=== PATIENT | female | born 1955 | race Caucasian/White ===

== ENCOUNTER → 2020-12-22 11:03 | Outpatient (CLI) | payer MEDICARE, SELFPAY | PROVIDERS: Visit Provider Ophthalmology | DX: Z01.812 Encounter for preprocedural laboratory examination (principal); Z20.822 Contact with and (suspected) exposure to COVID-19 | CPT/HCPCS: U0003 ==

== ENCOUNTER 2020-12-25 11:42 | Day surgery (SDC) | payer MEDICARE, SELFPAY ==
[2020-12-20 14:19] VITALS: BMI 29.2
[2020-12-25] VITALS (7 sets, daily range): BP systolic 124–189; BP diastolic 60–104; PULSE 59–97; RESP 16–18; TEMP 36.5; O2SAT 95–100
[2020-12-25 12:07] LABS: POC Glucose,Bedside 91 (70-110)
== END 2020-12-25 12:58 ==
PROVIDERS: PCP Nurse Practitioner; Visit Provider Ophthalmology
DX: H25.813 Combined forms of age-related cataract, bilateral (principal); H53.143 Visual discomfort, bilateral; H52.00 Hypermetropia, unspecified eye; E03.9 Hypothyroidism, unspecified; K21.9 Gastro-esophageal reflux disease without esophagitis; F41.9 Anxiety disorder, unspecified; F32.9 Major depressive disorder, single episode, unspecified; I10 Essential (primary) hypertension; Z88.1 Allergy status to other antibiotic agents; Z88.0 Allergy status to penicillin; Z88.8 Allergy status to other drugs, medicaments and biological substances; Z79.899 Other long term (current) drug therapy
CPT/HCPCS: 66984; 82962; V2632

== ENCOUNTER → 2021-01-12 11:54 | Outpatient (CLI) | payer MEDICARE, SELFPAY | PROVIDERS: Visit Provider Ophthalmology | DX: Z01.812 Encounter for preprocedural laboratory examination (principal); Z20.822 Contact with and (suspected) exposure to COVID-19 | CPT/HCPCS: U0003 ==

== ENCOUNTER 2021-01-15 10:04 | Day surgery (SDC) | payer MEDICARE, SELFPAY ==
[2021-01-08 17:02] VITALS: BMI 31.2
[2021-01-15] VITALS (7 sets, daily range): BP systolic 129–160; BP diastolic 64–86; PULSE 64–90; RESP 16–20; TEMP 36.1–36.5; O2SAT 93–100
== END 2021-01-15 12:18 | disposition home or self-care (01) ==
LOC: OR 10:05
PROVIDERS: PCP Nurse Practitioner; Visit Provider Ophthalmology
DX: H25.812 Combined forms of age-related cataract, left eye (principal)
CPT/HCPCS: 66984; V2632

== ENCOUNTER 2021-12-04 09:15 | Emergency (ER) | payer BC, SELFPAY ==
[2021-12-04] VITALS (7 sets, daily range): BP systolic 126–164; BP diastolic 72–90; PULSE 53–85; RESP 18; TEMP 36.9; O2SAT 99–100; BMI 26.4
--- NOTE | 2021-12-04 09:24 | PC.NURSE ---
ED MD at BS; family at BS
--- NOTE | 2021-12-04 09:27 | CT_ITS ---
FINAL REPORT CLINICAL HISTORY: fall, LOC, neck pain FINDINGS: Axial CT images of the cervical spine were obtained without contrast. Sagittal and coronal reformatted images were also obtained. This study was performed with techniques to keep radiation doses as low as reasonably achievable (ALARA). Individualized dose reduction techniques using automated exposure control or adjustment of mA and/or kV according to the patient's size were employed. There is no cervical fracture. There is moderate T3 compression fracture of uncertain age but may be acute. If indicated this could be further evaluated with MRI. The bony alignment is normal. There are [id number] degenerative changes. There is a disc-osteophyte complex at C5-6 with moderate right neural foraminal narrowing. There is no evidence of canal stenosis. No paraspinous soft tissue abnormality is seen. There is irregularity of the sternomanubrial joint that favors motion artifact. IMPRESSION: Moderate T3 compression fracture of uncertain age but may be acute. If indicated this could be further evaluated with MRI. No cervical fracture. Reviewed, Interpreted and Dictated by Tutu Shin III, MD Transcribed by Sudeep Villalpando Authenticated by Tutu Shin III, MD on 12/04/2021 11:10:41 AM [facility]
--- NOTE | 2021-12-04 09:27 | CT_ITS ---
FINAL REPORT CLINICAL HISTORY: fall, laceration to left side of forehead, LOC FINDINGS: Axial images of the head were obtained without contrast. This study was performed with techniques to keep radiation doses as low as reasonably achievable (ALARA). Individualized dose reduction techniques using automated exposure control or adjustment of mA and/or kV according to the patient's size were employed. There is no evidence of intracranial hemorrhage or mass. The ventricular size is within normal limits. There is no evidence of shift of the midline structures. There is mucosal thickening with some fluid and ovoid high attenuation area of the right maxillary sinus with right maxillary sinus wall thickening. Findings are consistent with chronic sinusitis or possible inspissated mucus or fungal sinusitis. No skull abnormality is seen on the bone window images. IMPRESSION: No acute intracranial abnormality. Findings consistent with chronic right maxillary sinusitis or possible inspissated mucus or fungal sinusitis. Reviewed, Interpreted and Dictated by Tutu Shin III, MD Transcribed by Sudepe Villalpando Authenticated by Tutu Shin III, MD on 12/04/2021 10:54:06 AM [facility]
[2021-12-04 09:29] LABS: POC Glucose,Bedside 122 (70-110)
--- NOTE | 2021-12-04 09:32 | PC.NURSE ---
Family at BS; given warm blanket, no other needs at this time
--- NOTE | 2021-12-04 09:40 | XR_ITS ---
FINAL REPORT CLINICAL HISTORY: trauma, pain and bruising lower anterior tib/fib after fall today FINDINGS: Two views of the left tibia-fibula demonstrate no acute fracture or dislocation. The joint spaces appear normal. The visualized bony structures are well aligned. There is a plantar calcaneal spur. IMPRESSION: No acute process. Reviewed, Interpreted and Dictated by Tutu Shin III, MD Transcribed by Sudeep Villalpando Authenticated by Tutu Shin III, MD on 12/04/2021 11:10:40 AM [facility]
--- NOTE | 2021-12-04 09:47 | HMH.EDFALL ---
ED Disposition Clinical Impression: Concussion with loss of consciousness Qualifiers: Encounter type: initial encounter Qualified Code(s): S06.0X9A - Concussion with loss of consciousness of unspecified duration, initial encounter Laceration of forehead Qualifiers: Encounter type: initial encounter Qualified Code(s): S01.81XA - Laceration without foreign body of other part of head, initial encounter Disposition: Home, Self-Care Condition on Discharge: Good Instructions: How to Prevent Falls Referrals: Dalila Fleming APRN [Primary Care Provider] - - Critical Care Critical Care Time: No Attestation: On 12/04/21, the high probability of a clinically significant, sudden or life threatening deterioration of the following system(s) required my full and direct attention, intervention and personal management. The time I documented below is in addition to time spent performing reported procedures but includes the following listed in this critical care notation. Medical Decision Making - Medical Records Medical records reviewed: Yes: I reviewed the patient's medical records. - Sourav Inquiry Pt receiving controlled substance: No Vital Signs: 12/04/21 09:16 12/04/21 09:30 12/04/21 10:27 Temperature 98.4 F Temperature Source Oral Pulse Rate 85 70 Pulse Rate [Left Radial] 84 Respiratory Rate 18 Blood Pressure 145/89 H 128/72 Blood Pressure [Right Arm] 164/90 H Blood Pressure Mean 103 89 Blood Pressure Mean [Right Arm] 114 Blood Pressure Source [Right Arm] Automatic Cuff Blood Pressure Position [Right Arm] Sitting 02 Sat by Pulse Oximetry 100 99 100 Oxygen Delivery Method Room Air 12/04/21 10:30 12/04/21 11:00 Temperature Temperature Source Pulse Rate 68 53 L Pulse Rate [Left Radial] Respiratory Rate Blood Pressure 135/83 132/75 Blood Pressure [Right Arm] Blood Pressure Mean 100 94 Blood Pressure Mean [Right Arm] Blood Pressure Source [Right Arm] Blood Pressure Position [Right Arm] 02 Sat by Pulse Oximetry 100 100 Oxygen Delivery Method - Lab Data Lab Results 12/04/21 09:22: POC Glucose 122 H Orders (Tests/Meds): ED MEDICATIONS Discontinued Medications Generic Name Dose Route Start Last Admin Trade Name Freq PRN Reason Stop Dose Admin Lidocaine/Prilocaine 5 gm 12/04/21 09:59 12/04/21 10:38 Lidocaine/Prilocaine 5gm Tube TP 12/04/21 10:00 1 gm ONCE ONE Administration - Radiology Data #1 Image(s): Tib/Fib Image Reviewed: Yes I reviewed the patient's radiology results, Yes I reviewed the patient's radiology image, Yes I have reviewed radiologist's interpretation FINDINGS: Two views of the left tibia-fibula demonstrate no acute fracture or dislocation. The joint spaces appear normal. The visualized bony structures are well aligned. There is a plantar calcaneal spur. IMPRESSION: No acute process. - CT Data CT Scan: Head, C-Spine Time Received: 11:[address] Reviewed: Yes: I have reviewed the patient's CT results, I have viewed the radiologist's interpretation Findings Narrative: IMPRESSION: No acute intracranial abnormality. Findings consistent with chronic right maxillary sinusitis or possible inspissated mucus or fungal sinusitis. IMPRESSION: Moderate T3 compression fracture of uncertain age but may be acute. If indicated this could be further evaluated with MRI. No cervical fracture. - Reevaluation(s) Time: 11:27 Reevaluation #1: On reevaluation, patient is feeling better. CT skin of the head was unremarkable, however the C-spine showed age-indeterminate fracture. Patient is not having any neck pain at this time and has full range of motion. Likely chronic in nature. Patient was given wound care precautions. He is to follow-up with PCP in 48 hours. Given strict return precautions. Verbalized understanding. Medical Decision Narrative: 66-year-old female presenting after sustaining closed head injury
--- NOTE | 2021-12-04 09:57 | PC.NURSE ---
pt to CT with mri technician by kavitha
--- NOTE | 2021-12-04 10:31 | PC.NURSE ---
pt given ice water; okay's by ZOYA RASCON
--- NOTE | 2021-12-04 11:12 | PC.NURSE ---
pt given an update; no other needs at this time
--- NOTE | 2021-12-04 11:23 | PC.NURSE ---
ED MD at BS assessing LAC to prepare for sutures
== END 2021-12-04 12:05 | disposition home or self-care (01) ==
PROVIDERS: Emergency Provider Emergency Medicine; PCP Nurse Practitioner
DX: S06.0X9A Concussion with loss of consciousness of unspecified duration, initial encounter (principal); S01.81XA Laceration without foreign body of other part of head, initial encounter; W01.190A Fall on same level from slipping, tripping and stumbling with subsequent striking against furniture, initial encounter; Y92.013 Bedroom of single-family (private) house as the place of occurrence of the external cause; I10 Essential (primary) hypertension; E78.5 Hyperlipidemia, unspecified; Z79.899 Other long term (current) drug therapy
CPT/HCPCS: 12001; 70450; 72125; 73590; 82962; 99284

== ENCOUNTER 2022-04-24 13:40 | Emergency (ER) | payer MEDICARE, SELFPAY ==
[2022-04-24 14:05] VITALS: BP 157/107; PULSE 89; RESP 18; TEMP 36.8; O2SAT 94; BMI 27.6
[2022-04-24 14:08] LABS: POC Glucose,Bedside 94 (70-110)
[2022-04-24 14:30] VITALS: BP 139/96; PULSE 72; RESP 18; O2SAT 99
--- NOTE | 2022-04-24 15:10 | HMH.EDGENADL ---
Discharge Plan Disposition Patient Disposition: Home, Self-Care Condition: Good Prescriptions Prescriptions: New doxycycline hyclate [Vibramycin] 100 mg capsule 100 mg PO BID Qty: 14 0RF No Action cyclobenzaprine 10 MG tablet 5 mg PO BID PRN (Reason: PAIN ) atorvastatin 40 MG tablet 40 mg PO HS oxybutynin chloride 10 MG tablet extended release 24hr 10 mg PO DAILY levothyroxine 75 MCG tablet 75 mcg PO DAILY bupropion HCl 75 MG tablet 75 mg PO DAILY cholecalciferol (vitamin D3) 1,250 MCG capsule 50,000 unit PO WEEKLY potassium gluconate 600 MG tablet 595 mg PO BID sennosides-docusate sodium [Stool Softener-Stimulant Laxat] 1 EACH tablet 1 ea PO DAILY aspirin 81 MG tablet,chewable 81 mg PO DAILY Referrals Follow up/Referrals: Dalila Fleming APRN [Primary Care Provider] - See instructions Activity Restrictions/Add. Instructions Additional Instructions/Restrictions: Doxycycline as prescribed. Additional instructions for WOUND CARE: Clean the wound daily and a bandage. See your physician in 3-5 days for a wound check. Return to the emergency room if increasing pain, swelling, redness, red streaks, pus drainage, or fever. Clinical Impressions Clinical Impression: Dog bite of hand Instructions Patient Instructions: Animal Bites Discharge ED Provider: Daniel Childress General Adult HPI General Chief complaint: Animal Bite Stated complaint: [id number] Dog Bite, right hand Time Seen by Provider: 04/24/22 15:01 Mode of Arrival: Ambulatory Source of Information: Patient Limitations: No Limitations Description of Symptoms (Recalled from ER Triage Doc. by RN): pt to ed c/o dog bite to the right hand. pt states it is her dog and is utd on it's vaccinations. pt reports she is not up to date on a tetanus. History of Present Illness HPI narrative: The patient's own dog bit her on the right hand when it was excited about a cat and a stranger. The dog is up-to-date on immunizations. The patient is not up-to-date on tetanus immunization. Patient has allergy to penicillins and cephalosporins which cause a rash. Related Data Home Medications Medication Instructions Recorded Confirmed aspirin 81 mg chewable tablet 81 mg PO DAILY Blood thinner 10/16/17 01/15/21 sennosides 8.6 mg-docusate sodium 1 ea PO DAILY CONSTIPATION 10/16/17 01/15/21 50 mg tablet (Stool Softener-Stimulant Laxative) atorvastatin 40 mg tablet 40 mg PO HS Cholesterol 12/20/20 01/15/21 bupropion HCl 75 mg tablet 75 mg PO DAILY Depression 12/20/20 01/15/21 cholecalciferol (vitamin D3) 1,250 50,000 unit PO WEEKLY Supplement 12/20/20 01/15/21 mcg (50,000 unit) capsule cyclobenzaprine 10 mg tablet 5 mg PO BID PRN PAIN 12/20/20 01/15/21 levothyroxine 75 mcg tablet 75 mcg PO DAILY THYROID 12/20/20 01/15/21 oxybutynin chloride 10 mg 10 mg PO DAILY BLADDER 12/20/20 01/15/21 tablet,extended release 24 hr potassium gluconate 600 mg (99 mg) 595 mg PO BID Supplement 12/20/20 01/15/21 tablet Previous Rx's Medication Instructions Recorded doxycycline hyclate 100 mg capsule 100 mg PO BID #14 caps 04/24/22 (Vibramycin) Allergies Allergy/AdvReac Type Severity Reaction Status Date / Time AMOXICILLIN Allergy Intermediate I-RASH Uncoded 06/23/17 14:26 AMPICILLIN Allergy Intermediate I-RASH Uncoded 06/23/17 14:26 BUPROPION Allergy Intermediate I-RASH Uncoded 06/23/17 14:26 From BACTRIM Allergy Intermediate I-RASH Uncoded 06/23/17 14:26 From KEFLEX Allergy Intermediate I-RASH Uncoded 06/23/17 14:26 From TYLENOL W/CODEINE #3 Allergy Intermediate I-RASH Uncoded 06/23/17 14:26 From ULTRAM Allergy Intermediate I-RASH Uncoded 06/23/17 14:26 From VICODIN Allergy Intermediate I-RASH Uncoded 06/23/17 14:26 NAPROXEN Allergy Intermediate I-RASH Uncoded 06/23/17 14:26 From BENADRYL Allergy Unknown HYPERACTIVI Uncoded 06/23/17 14:26 TY ILOSONE Allergy Unknown Uncoded 06/23/17 14:26 PCN (
[2022-04-24 15:37] VITALS: BP 161/97; PULSE 89; RESP 17; TEMP 36.8; O2SAT 99
== END 2022-04-24 15:38 | disposition home or self-care (01) ==
PROVIDERS: Emergency Provider Emergency Medicine; PCP Nurse Practitioner
DX: S61.431A Puncture wound without foreign body of right hand, initial encounter (principal); W54.0XXA Bitten by dog, initial encounter; Z23 Encounter for immunization
CPT/HCPCS: 82962; 90471; 90714; 99283

== ENCOUNTER 2023-08-27 12:43 | Emergency (ER) | payer MEDICARE, SELFPAY ==
[2023-08-27 13:45] VITALS: BP 141/89; PULSE 116; RESP 19; TEMP 37.1; O2SAT 99; BMI 25.7
--- NOTE | 2023-08-27 13:59 | ED_ITS ---
Discharge Plan Disposition Patient Disposition: Home, Self-Care Condition: Good Prescriptions Prescriptions: No Action cyclobenzaprine 10 MG tablet 5 mg PO BID PRN (Reason: PAIN ) atorvastatin 40 MG tablet 40 mg PO HS oxybutynin chloride 10 MG tablet extended release 24hr 10 mg PO DAILY levothyroxine 75 MCG tablet 75 mcg PO DAILY bupropion HCl 75 MG tablet 75 mg PO DAILY cholecalciferol (vitamin D3) 1,250 MCG capsule 50,000 unit PO WEEKLY potassium gluconate 600 MG tablet 595 mg PO BID sennosides-docusate sodium [Stool Softener-Stimulant Laxat] 1 EACH tablet 1 ea PO DAILY aspirin 81 MG tablet,chewable 81 mg PO DAILY doxycycline hyclate [Vibramycin] 100 mg capsule 100 mg PO BID Qty: 14 0RF Referrals Follow up/Referrals: Dalila Fleming APRN [Primary Care Provider] - See instructions Activity Restrictions/Add. Instructions Additional Instructions/Restrictions: Take your Zofran as your Doctor prescribed *Monitor Temp, Over the counter Motrin or Tylenol as directed/as needed Tylenol every 4 hours and Motrin every 6 hours (as long as your family doctor has told you that you can take it) for fever or pain. and straight to ER if unable to lower temp less than 101.0 after medication given *Warm salt water gargles may help to soothe the throat *Throat Lozenges? *Warm fluids like tea with honey may help to soothe the throat? *Sleep elevated *Humidifier/Vaporizer *Follow up IMMEDIATELY for new or worsening symptoms or no Noticeable improvement over the next 48-72 hours. 911 for difficulty breathing or swallowing You were tested for today for Upper Respiratory Panel with COVID19 your test result should be back in the next 24hours, you may check your results on the [facility] My Health Portal if your COVID or Influenza is positive on there your must Quarantine for 5 days Clinical Impressions Clinical Impression: Viral syndrome Instructions Patient Instructions: DI for Viral Syndrome, Nausea and Vomiting-Adult Discharge ED Provider: Tamiko Pierce [facility] [place] General Stated complaint: congestion,vomiting Mode of Arrival: Ambulatory Source of Information: Patient Limitations: No Limitations Time Seen by Provider: 08/27/23 13:59 Description of Symptoms (Recalled from Triage Doc. by RN): PATIENT C/O COUGH, FEVER AND VOMITING SINCE Thursday Symptoms (Recalled from RN notes): No Resp Symptoms (Recalled from RN notes): Yes Skin Symptoms (Recalled from RN notes): No MS Symptoms (Recalled from RN notes): No Functional Status (Recalled from RN notes): WNL History of Present Illness Provider Complaint: Patient states that everyone in the house is sick and got her sick States that she has been having fever, chills, vomiting, feeling achy all over States that she feels like she may have the flu or something Related Data Home Medications Medication Instructions Recorded Confirmed aspirin 81 mg chewable tablet 81 mg PO DAILY Blood thinner 10/16/17 01/15/21 sennosides 8.6 mg-docusate sodium 1 ea PO DAILY CONSTIPATION 10/16/17 01/15/21 50 mg tablet (Stool Softener-Stimulant Laxative) atorvastatin 40 mg tablet 40 mg PO HS Cholesterol 12/20/20 01/15/21 bupropion HCl 75 mg tablet 75 mg PO DAILY Depression 12/20/20 01/15/21 cholecalciferol (vitamin D3) 1,250 50,000 unit PO WEEKLY Supplement 12/20/20 01/15/21 mcg (50,000 unit) capsule cyclobenzaprine 10 mg tablet 5 mg PO BID PRN PAIN 12/20/20 01/15/21 levothyroxine 75 mcg tablet 75 mcg PO DAILY THYROID 12/20/20 01/15/21 oxybutynin chloride 10 mg 10 mg PO DAILY BLADDER 12/20/20 01/15/21 tablet,extended release 24 hr potassium gluconate 600 mg (99 mg) 595 mg PO BID Supplement 12/20/20 01/15/21 tablet Previous Rx's Medication Instructions Recorded doxycycline hyclate 100 mg capsule 100 mg PO BID #14 caps 04/24/22 (Vibramycin) Allergies Allergy/AdvReac Type Severity Reaction Status Date / Time AMOXICILLIN Allergy Intermediate I-RASH Uncoded 06/23/17 14:26 AMPICILLIN Allergy Intermediate I-RASH Uncoded 06/23/17 14:26 BUPROPION Allergy Intermediate I-RASH Uncoded 06/23/17 14:26 From BACTRIM Allergy Intermediate I-RASH Uncoded 06/23/17 14:26 From KEFLEX Allergy Intermediate I-RASH Uncoded 06/23/17 14:26 From TYLENOL W/CODEINE #3 Allergy Intermediate I-RASH Uncoded 06/23/17 14:26 From ULTRAM Allergy Intermediate I-RASH Uncoded 06/23/17 14:26 From VICODIN Allergy Intermediate I-RASH Uncoded 06/23/17 14:26 NAPROXEN Allergy Intermediate I-RASH Uncoded 06/23/17 14:26 From BENADRYL Allergy Unknown HYPERACTIVI Uncoded 06/23/17 14:26 TY ILOSONE Allergy Unknown Uncoded 06/23/17 14:26 PCN (PENICILLIN) Allergy Unknown I-RASH Uncoded 06/23/17 14:26 Worker's Comp Is this a Worker's Comp case?: No [facility] Disclaimer: The information contained in this section may have been updated after the patient was seen, as this information can be updated by other users. Social History Smoking Status: Never smoker second hand exposure: Yes alcohol intake: never current occupational status: disabled Travel in the last 8 weeks: None household members: none housing: house caffeine: Yes ROS Obtained: Yes All systems reviewed & no additional complaints except as documented and Yes Systems reviewed as appropriate & no additional complaints except as documented Constitutional Constitutional: Reports system reviewed and no additional complaints, except as documented, Reports as per HPI, Reports body ache, Reports chills, Reports fever(s) and Reports headache(s) ENT Ears, Nose, Mouth, and Throat: Reports system reviewed and no additional complaints, except as documented, Reports as per HPI and Reports headache(s) Cardiovascular Cardiovascular: Reports system reviewed and no additional complaints, except as documented and Reports as per HPI Respiratory Respiratory: Reports system reviewed and no additional complaints, except as documented and Reports as per HPI Gastrointestinal Gastrointestingal: Reports system reviewed and no additional complaints, except as documented, as per HPI, nausea and vomiting; Denies abdominal pain, cramping or diarrhea Genitourinary Female Genitourinary: Reports system reviewed and no additional complaints, except as documented and Reports as per HPI Musculoskeletal Musculoskeletal: Reports system reviewed and no additional complaints, except as documented and Reports as per HPI Neurologic Neurologic: Reports headache(s) Physical Exam General General appearance: alert and in no apparent distress ENT ENT exam: Present mucous membranes moist Expanded ENT Exam Nose exam: Absent sinus tenderness Respiratory Respiratory exam: Present normal lung sounds bilaterally; Absent respiratory distress or wheezes Cardiovascular Cardiovascular exam: Present regular rate, normal rhythm and tachycardia Abdominal Exam Abdominal exam: Present soft and normal bowel sounds; Absent distention or tenderness Neurological Exam Neurological exam: Present alert, oriented X3 and normal gait Medical Decision Making Sourav Inquiry Pt receiving controlled substance: No Sourav was queried for this patient: No Vital Signs: 08/27/23 13:45 Temperature 98.8 F Temperature Source Oral Pulse Rate [Left Brachial] 116 H Respiratory Rate 19 Blood Pressure [Left Arm] 141/89 H Blood Pressure Mean [Left Arm] 106 Blood Pressure Source [Left Arm] Automatic Cuff Blood Pressure Position [Left Arm] Sitting 02 Sat by Pulse Oximetry 99 Oxygen Delivery Method Room Air Lab Data Lab results reviewed: Yes I reviewed the patient's lab results. Medical Decision Narrative: Patient states that she tried to take the zofran yesterday but was vomiting too bad requestin injection Patient states that she has taken the medication before without complications or reactions
[2023-08-27 14:18] LABS: UTC Influenza A Antigen Negative (Negative)
[2023-08-27 14:19] LABS: UTC Influenza B Antigen Negative (Negative)
[2023-08-27] MEDS: ONDANSETRON 4MG/2ML VIAL 4 MG IM (14:19)
[2023-08-27 14:25] VITALS: BP 141/89; PULSE 116; RESP 19; TEMP 37.1; O2SAT 99
[2023-08-27 14:58] LABS: Adenovirus,PCR Not Detected (NotDetected); Coronavirus 229E Not Detected (NotDetected); Coronavirus NL63 Not Detected (NotDetected); Coronavirus OC43 Not Detected (NotDetected); Coronovirus HKU1,PCR Not Detected (NotDetected); Human Metapneumovirus Not Detected (NotDetected); Influenza A, PCR Not Detected (NotDetected); Influenza AH1, 2009 Not Detected (NotDetected); Influenza AH1, PCR Not Detected (NotDetected); Influenza AH3,PCR Not Detected (NotDetected); Influenza B, PCR Not Detected (NotDetected); Parainfluenza 1, PCR Not Detected (NotDetected); Parainfluenza 2, PCR Not Detected (NotDetected); Parainfluenza 3, PCR Not Detected (NotDetected); Parainfluenza 4, PCR Not Detected (NotDetected); Respiratory Syncytial Virus Not Detected (NotDetected); Rhinovirus/Enterovirus Not Detected (NotDetected)
[2023-08-27 17:20] LABS: Coronavirus 19, PCR Detected (NotDetected)
== END 2023-08-27 14:48 | disposition home or self-care (01) ==
PROVIDERS: Emergency Provider Nurse Practitioner; PCP Nurse Practitioner
DX: U07.1 COVID-19 (principal); R11.2 Nausea with vomiting, unspecified; R50.9 Fever, unspecified; R51.9 Headache, unspecified; M79.18 Myalgia, other site
CPT/HCPCS: 87632; 87635; 87804; 96372; 99204; 99212; G0463; J2405